=== PATIENT | female | born 1980 | race Hispanic/Latino ===

== ENCOUNTER 2023-07-24 23:45 | Observation (INO) | payer SELFPAY ==
[2023-07-25] MEDS ORDERED: Prochlorperazine 10 MG/2 ML VIAL ONE (00:54)
[2023-07-25] MEDS ORDERED: diphenhydrAMINE 50 MG/ML VIAL ONE (00:54)
[2023-07-25] MEDS ORDERED: Acetaminophen 500 MG TAB ONE (00:55)
[2023-07-25 01:11] LABS: #Basophils 0.12 10x3/uL (0.0-0.2); #Eosinphils 0.25 10x3/uL (0.0-0.5); #Neutrophils 6.98 10x3/uL (1.5-8.4); %Eosinophils 2.2 % (0.0-6.0); %Lymphocytes 29.1 % (18.0-47.0); %Monocytes 6.9 % (0.0-10.0); %Neutrophils 60.4 % (40.0-75.0); Hematocrit 30.5 % (34.9-44.5); Hemoglobin 9.5 g/dL (12.0-15.5); Mean Corpuscular HGB CONC 31.1 g/dL (32.0-36.0); Mean Corpuscular Hemoglobin 22.1 pg (27.0-33.0); Mean Corpuscular Volume 70.9 fl (81.6-98.3); Mean Platelet Volume 9.5 fl (7.4-10.4); Platelet Count 394 10x3/uL (150-450); RBC Distribution Width 17.9 % (11.5-14.5); White Blood Cell (WBC) Count 11.6 10x3/uL (3.5-10.5)
[2023-07-25 01:13] LABS: INR-International Normal Ratio 0.9; PTT 24.8 sec (22.0-33.0); Prothrombin Time 10.2 sec (9.5-12.1)
[2023-07-25 01:18] LABS: ALT (SGPT) 16 U/L (8-55); AST (SGOT) 19 U/L (5-34); Alkaline Phosphatase 75 U/L (40-110); Anion Gap 13 mmol/L (10-20); BUN (Urea Nitrogen) 16 mg/dL (7.0-18.7); Bilirubin, Total 0.2 mg/dL (0.2-1.2); Calc. Creatinine Clearance 0 mL/min (70-130); Calcium 8.6 mg/dL (7.8-10.44); Carbon Dioxide 26 mmol/L (22-29); Chloride 102 mmol/L (98-107); Estimated GFR 73; Globulin 2.8 g/dL (2.4-3.5); Glucose 128 mg/dL (70-105); Lipase 36 U/L (8-78); Magnesium 1.8 mg/dL (1.6-2.6); Potassium 2.9 mmol/L (3.5-5.1); Protein, Total 6.8 g/dL (6.0-8.3); Sodium 138 mmol/L (136-145)
[2023-07-25] MEDS ORDERED: Magnesium 2 GM/50 ML BAG (IN WATER) ONE (01:25)
[2023-07-25 01:26] LABS: Actual Bicarbonate (HCO3v) 25.1 mEq/L (22-28); Analyzer IN Cardio CS ER; Base Excess 2.4 mEq/L (-2 - +2); Calcium, Ionized (venous) 1.02 mmol/L (1.16-1.32); Chloride (VBG) 100 mmol/L (98-106); Critical Notified Whom: ER-RN; Hematocrit-VBG 29 % (36.0-47.0); Potassium (VBG) 2.84 mmol/L (3.70-5.30); Puncture Site Other Site; RapidComm Collect By ER-RN; Sodium 137 mmol/L (133-146)
[2023-07-25] MEDS ORDERED: Potassium Chloride 20 MEQ TAB ONE (01:34)
[2023-07-25 02:12] LABS: Hypochromia SLIGHT = 6-15 cells (100X) (0-5/hpf); Microcytosis SLIGHT = 6-15 cells (100X) (0-5/hpf)
[2023-07-25 02:13] LABS: Platelet Adequacy Comment Appears Adequate
[2023-07-25] MEDS ORDERED: Senokot S 8.6-50 MG TAB PO PRN (02:17)
[2023-07-25] MEDS ORDERED: Calcium Carbonate 500 MG ChewTAB PO PRN (02:17)
[2023-07-25] MEDS ORDERED: Labetalol HCl 100 MG/20 ML VIAL SLOW IVP PRN (02:51)
[2023-07-25 02:54] LABS: Bilirubin Neg (Negative); Blood, Urine 250 (Negative); Clarity Clear (Clear); Glucose, Urine (Dipstick) Normal (Negative); Ketone, Urine Negative (Negative); Leukocyte Negative (Negative); Nitrite Negative (Negative); Protein, Urine (Dipstick) 30 mg/dl (Neg-Trace); Urobilinogen Normal mg/dL (Less than 2); pH, Urine 6.5 (5.0-9.0)
[2023-07-25 03:03] VITALS: BMI 31.1
[2023-07-25 03:07] LABS: Bacteria/HPF None Seen HPF (None Seen); CAUTI Indications for Culture Dysuria,urgency,freq; Squamous Epithelial 0-3 HPF (0-3); WBC/HPF None Seen HPF (0-3)
[2023-07-25 03:08] LABS: Urine Culture Reflex No No
[2023-07-25 03:10] LABS: Pregnancy Test - Urine (BHCG) Negative (Negative); Pregu Control Background? CLEAR/WHITE (CLR/WHITE); Pregu Control Bar Appear? YES (CONTROL BAR)
[2023-07-25] MEDS: Amlodipine 5 MG TAB PO SCH ×2 (03:27→08:55)
[2023-07-25 05:23] LABS: Cardiac Risk 2.9 (Less than 4.5)
[2023-07-25 05:29] LABS: Troponin I 0.013 ng/mL (< 0.028)
[2023-07-25] MEDS: Potassium Chloride 20 MEQ TAB PO SCH ×2 (06:20→11:44)
[2023-07-25 08:52] LABS: Anion Gap 10 mmol/L (10-20); BUN (Urea Nitrogen) 15 mg/dL (7.0-18.7); Calc. Creatinine Clearance 106 mL/min (70-130); Calcium 8.2 mg/dL (7.8-10.44); Carbon Dioxide 27 mmol/L (22-29); Chloride 105 mmol/L (98-107); Estimated GFR 97; Glucose 101 mg/dL (70-105); Magnesium 2.4 mg/dL (1.6-2.6); Potassium 3.2 mmol/L (3.5-5.1); Sodium 139 mmol/L (136-145)
[2023-07-25 08:54] LABS: Troponin I 0.014 ng/mL (< 0.028)
[2023-07-25] MEDS: Losartan 25 MG TAB PO SCH (08:55)
[2023-07-25] MEDS: Ferrous Sulfate 325 MG TAB PO SCH (08:55)
[2023-07-25] MEDS: Atenolol 25 MG TAB PO SCH (08:56)
[2023-07-25 14:08] LABS: Hemoglobin A1c 5.4 % (4.0-6.0)
[2023-07-25 17:11] LABS: Amphetamine Not Detected (NotDetected); Barbiturates Screen Not Detected (NotDetected); Benzodiazepine Screen Not Detected (NotDetected); Cocaine Metabolite Screen Not Detected (NotDetected); Methadone Not Detected (NotDetected); Methamphetamine Not Detected (NotDetected); Opiate Screen Not Detected (NotDetected); Oxycodone Screen Not Detected (NotDetected); Phencyclidine (PCP) Not Detected (NotDetected); THC/Cannabinoid Screen Not Detected (NotDetected); Tricyclic Screen Not Detected (NotDetected)
[2023-07-25] MEDS: Carvedilol 6.25 MG TAB PO SCH (18:37)
[2023-07-25] MEDS: Enoxaparin 40 MG (0.4 mL) SYRINGE SC SCH (20:38)
[2023-07-25] MEDS: Atorvastatin Calcium 10 MG TAB PO SCH (20:38)
[2023-07-26 05:03] LABS: Anion Gap 9 mmol/L (10-20); BUN (Urea Nitrogen) 10 mg/dL (7.0-18.7); Calc. Creatinine Clearance 112 mL/min (70-130); Calcium 8.4 mg/dL (7.8-10.44); Carbon Dioxide 25 mmol/L (22-29); Chloride 110 mmol/L (98-107); Estimated GFR 104; Glucose 89 mg/dL (70-105); Sodium 140 mmol/L (136-145)
[2023-07-26] MEDS: Potassium Chloride 20 MEQ TAB PO SCH (08:46)
[2023-07-26 10:06] LABS: Hematocrit 32.5 % (34.9-44.5); Hemoglobin 9.8 g/dL (12.0-15.5); Mean Corpuscular HGB CONC 30.2 g/dL (32.0-36.0); Mean Corpuscular Volume 72.9 fl (81.6-98.3); Mean Platelet Volume 9.6 fl (7.4-10.4); Platelet Count 408 10x3/uL (150-450); RBC Distribution Width 18.1 % (11.5-14.5); Red Blood Cell (RBC) Count 4.46 10x6/uL (3.90-5.03); White Blood Cell (WBC) Count 8.2 10x3/uL (3.5-10.5)
[2023-07-26 10:17] LABS: Iron 110 ug/dL (50-170); Iron Binding Capacity, Total 416 mcg/dL (265-497); Transferrin, Serum 333 mg/dL (180-382)
[2023-07-26] MEDS: Acetaminophen 325 MG TAB PO PRN (18:28)
[2023-07-27 06:46] VITALS: TEMP 98
[2023-07-27] MEDS ORDERED: Amlodipine 5 MG TAB PO SCH (09:30)
[2023-07-27] MEDS ORDERED: Amlodipine 10 MG TAB PO SCH (09:30)
[2023-07-27 10:16] LABS: Anion Gap 10 mmol/L (10-20); BUN (Urea Nitrogen) 12 mg/dL (7.0-18.7); Calc. Creatinine Clearance 115 mL/min (70-130); Calcium 8.4 mg/dL (7.8-10.44); Carbon Dioxide 26 mmol/L (22-29); Chloride 107 mmol/L (98-107); Estimated GFR 107; Glucose 101 mg/dL (70-105); Sodium 139 mmol/L (136-145)
[2023-07-27 12:45] VITALS: BP 140/87
[2023-07-28] MEDS ORDERED: Amlodipine 5 MG TAB PO SCH (09:00)
== END 2023-07-27 14:26 | disposition home or self-care (01) ==
LOC: CSHERS 23:45 → CSHTELE 07-25 01:58
PROVIDERS: ADMIT Student in an Organized Health Care Education/Training Program; ATTEND Internal Medicine
PROC: B246ZZZ Ultrasonography of Right and Left Heart (ICD-10-PCS; principal; 2023-07-27)
DX: R07.89 Other chest pain (principal); I16.1 Hypertensive emergency; I08.1 Rheumatic disorders of both mitral and tricuspid valves; E78.5 Hyperlipidemia, unspecified; D64.9 Anemia, unspecified; R51.9 Headache, unspecified; R73.9 Hyperglycemia, unspecified; E87.6 Hypokalemia; I25.2 Old myocardial infarction; Z90.710 Acquired absence of both cervix and uterus; Z90.49 Acquired absence of other specified parts of digestive tract; Z98.890 Other specified postprocedural states; Z79.899 Other long term (current) drug therapy; Z79.82 Long term (current) use of aspirin; Z79.02 Long term (current) use of antithrombotics/antiplatelets
CPT/HCPCS: 36415; 70450; 71045; 80048; 80053; 80061; 80306; 81001; 81025; 82805; 83036; 83540; 83550; 83690; 83735; 83880; 84466; 84484; 85025; 85027; 85610; 85730; 93005; 93010; 93306; 96361; 96372; 96374; 96375; G0378; J0780; J1200; J1650; J3475